=== PATIENT | male | born 1960 | race Caucasian/White ===

== ENCOUNTER 2018-06-26 07:23 | Inpatient (IN) ==
[2018-06-26] MEDS ORDERED: NS 1,000 ML IV ONE (07:56)
[2018-06-26 08:04] LABS: BASO# 0.04 X1000 (0.0-0.2); BASO% 0.4 % (0.0-0.8); EOS# 0.07 X1000 (0.0-0.7); EOS% 0.6 % (0.0-10.0); IMM GRAN# 0.03 X1000 (0.0-0.04); IMM GRAN% 0.3 % (0.0-0.5); LYMPH# 1.09 X1000 (1.2-3.4); LYMPH% 9.9 % (20.5-51.1); MCH 31.1 PG (27-31); MCHC 34.1 g/dL (33-37); MCV 91.1 FL (81-99); MONO# 0.65 X1000 (0.11-0.59); MONO% 5.9 % (1.7-9.3); NEUT# 9.13 X1000 (1.4-6.5); NEUT% 82.9 % (42.2-75.2); PLT 347 X1000 (130-400); RDW 13.7 % (11.5-14.5); WBC 11.01 X1000 (4.8-10.8)
[2018-06-26] MEDS ORDERED: ASPIRIN ONE (08:19)
[2018-06-26 08:21] LABS: AGAP 11; ALBUMIN 4.2 g/dL (3.5-5.0); ALKALINE PHOSPHATASE 67 U/L (32-122); BUN 15 mg/dL (8-22); CALCIUM 9.2 mg/dL (8.8-10.2); CHLORIDE 101 mmol/L (98-107); COSMO 272; CREATININE 0.7 mg/dL (0.7-1.2); ESTIMATED GFR > 60; GLUCOSE 120 mg/dL (70-104); GOT 12 U/L (10-34); GPT 8 U/L (10-44); POTASSIUM 4.2 mmol/L (3.5-5.1); SODIUM 135 mmol/L (136-145); TCO2 23 mmol/L (25-35); TOTAL PROTEIN 6.9 g/dL (6.3-8.3)
[2018-06-26 08:33] LABS: URINE SOURCE CLEAN CATCH
[2018-06-26 08:41] LABS: BILIRUBIN URINE NEGATIVE (NEGATIVE); BLOOD URINE NEGATIVE (NEGATIVE); CLARITY CLEAR (CLEAR); COLOR YELLOW; GLUCOSE URINE NEGATIVE (NEGATIVE); KETONE URINE NEGATIVE (NEGATIVE); LEUKOCYTES URINE NEGATIVE (NEGATIVE); NITRITE URINE NEGATIVE (NEGATIVE); PROTEIN URINE NEGATIVE (NEGATIVE); UROBILINOGEN URINE NORMAL
[2018-06-26] MEDS ORDERED: DUONEB (A & A) INH ONE (10:22)
--- NOTE | 2018-06-26 11:13 | PROVIDER DOCUMENTATION ---
This chart was entered by Alison Bolivar Scribe, acting as scribe for Maurice Funk MD. HPI-Syncope/Dizziness - General Chief Complaint: Near Syncope Stated Complaint: WEAK,FAINT Time Seen by Provider: 06/26/18 07:31 Source: patient Allergies/Adverse Reactions: Patient Allergies Allergy/AdvReac Type Severity Reaction Status Date / Time codeine Allergy Unknown Verified 05/20/18 07:01 Home Medications: Home Medication List Medication Instructions Recorded Confirmed Last Taken Type Albuterol 2.5MG/Ipratrop 0.5MG 3 ml INH Q6H PRN PRN #60 neb 05/04/18 Unknown Rx [Duoneb] Amoxicillin 875 mg PO BID #20 tab 05/04/18 Unknown Rx Prednisone 10 mg PO BID #10 tab 05/04/18 Unknown Rx Hydrocodone/APAP 5 mg/325 mg 1 - 2 tab PO Q6H PRN PRN #18 tab 05/20/18 Unknown Rx [[place]-5] Azithromycin [Zithromax Z-Hansel] 250 mg PO DIRECTED #1 pkg 06/26/18 Unknown Rx Methylprednisolone [Medrol Dosepak] 4 mg PO DIRECTED #1 pkg 06/26/18 Unknown Rx - History of Present Illness-Syncope/Dizzy Nature of Presenting Problem: 57yom with hx of COPD c/o two near syncopal episodes that occurred this morning with dizziness and diaphoresis. He reports that he had a near syncopal episode with diaphoresis and dizziness this morning and rested for a short period of time. He reports after he rested, he had an additional near syncopal episode with diaphoresis and dizziness. He reports that he has had similar episodes with similar symptoms in the past when he overdosed on norco. He denies injury. He does not currently c/o pain. He reports his symptoms resolved prior to arrival. He denies fever, chills, nausea, vomiting, cp. Onset/Duration: reports: this morning Timing: reports: gone now, intermittent Position/Activity at time of episode: reports: lying, standing Symptoms prior to episode: reports: diaphoresis Context: reports: felt faint, almost passed out. denies: lost consciousness, incontinent of urine, incontinent of stool Loss of Consciousness: no loss of consciousness Current Symptoms: reports: none/feels normal Recently Seen Here or By Another Healthcare Provider: No Review of Systems - Adult - REVIEW OF SYSTEMS - ADULT Constitutional: denies: chills, fever Eyes: denies: discharge, dry eyes Ears, Nose, Mouth & Throat: denies: ear discharge, ear pain Cardiovascular: denies: chest pain, palpitations Respiratory: denies: cough, shortness of breath Gastrointestinal: denies: abdominal pain, diarrhea, nausea, vomiting Genitourinary: denies: dysuria, hematuria Musculoskeletal: denies: back pain, muscle aches, muscle weakness Integumentary: reports: no symptoms reported Neurological: reports: dizziness/vertigo, syncope. denies: headache/migraines Psychiatric: reports: no symptoms reported Endocrine: reports: excessive sweating. denies: change in skin pigment Hematologic/Lymphatic: reports: no symptoms reported Allergic/Immunologic: reports: no symptoms reported All Other Systems: Reviewed and Negative Past History - Adult - PAST MEDICAL HISTORY-ADULT Review of Records: reports: Old Records Reviewed, Nursing Assessment Review, Medications Reviewed Major Childhood Illnesses: reports: denies history Cardiovascular: reports: denies history Respiratory: reports: asthma, COPD Gastrointestinal: reports: denies history Obstetrical/Gynecological: reports: denies history Genitourinary: reports: prostate cancer Musculoskeletal: reports: denies history, chronic pain Neurological: reports: denies history Endocrine/Immune: reports: denies history. denies: Diabetes, thyroid disorder Other Conditions: reports: denies history - PRIOR SURGERIES/PROCEDURES Surgical/Procedure History: reports: joint replacement (TKA) - IMMUNIZATION STATUS Childhood Immunizations: See Nurse Assessment Flu Vaccine: See Nurse Assessment - FAMILY HISTORY Family History: reviewed, not pertinent - SOCIAL HISTORY Smoking: cigarettes, less than 1 pack/day Substance Use: denies Living Situation: family Physical Exam-General - PHYSICAL EXAM-ADULT Initial Vital Signs Reviewed: Yes - CONSTITUTIONAL General Appearance: alert, no apparent distress - EYES Eyes: PERRL/EOMI, pink conjunctivae - HEAD, EARS, NOSE, MOUTH & THROAT HENMT: normocephalic/atraumatic, moist mucous membranes - NECK Neck: non-tender, supple - RESPIRATORY Respiratory: chest non-tender, lungs clear, normal breath sounds, no pleuratic chest pain, no respiratory distress, no accessory muscle use. 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 negative: bradycardia, tachycardia - GASTROINTESTINAL (ABDOMEN) Abdominal Exam: non tender, soft. negative: distended, guarding - MUSCULOSKELETAL Extremity: normal range of motion, non-tender, normal inspection, no pedal edema - SKIN Integumentary: normal color, warm/dry - NEUROLOGIC Neurologic: grossly normal, no motor/sensory deficits - PSYCHIATRIC Psych/Mental Status: normal mood/affect, normal thought content, normal thought process, oriented x 3 Progress - PLAN OF CARE/RESULTS Progress/Plan/Lab Results: Vital Signs - 8 hr 06/26/18 07:29 06/26/18 07:53 06/26/18 08:15 Temperature 97 F L Pulse Rate 80 75 Pulse Rate [Sitting] 81 Pulse Rate [Standing] 86 Pulse Rate [Supine] 79 Respiratory Rate 18 18 Blood Pressure 143/87 151/97 Blood Pressure [Sitting] 145/95 Blood Pressure [Standing] 155/92 Blood Pressure [Supine] 147/91 O2 Sat by Pulse Oximetry 95 97 06/26/18 09:30 06/26/18 10:32 06/26/18 11:22 Temperature Pulse Rate 79 79 81 Pulse Rate [Sitting] Pulse Rate [Standing] Pulse Rate [Supine] Respiratory Rate 19 11 L 14 Blood Pressure 150/73 132/79 Blood Pressure [Sitting] Blood Pressure [Standing] Blood Pressure [Supine] O2 Sat by Pulse Oximetry 92 L 94 L 93 L 06/26/18 11:23 Temperature 98.1 F Pulse Rate 81 Pulse Rate [Sitting] Pulse Rate [Standing] Pulse Rate [Supine] Respiratory Rate 14 Blood Pressure 132/79 Blood Pressure [Sitting] Blood Pressure [Standing] Blood Pressure [Supine] O2 Sat by Pulse Oximetry 92 L Laboratory Results - last 24 hr 06/26/18 06/26/18 06/26/18 07:53 07:53 07:53 WBC 11.01 H RBC 4.50 L Hgb 14.0 Hct 41.0 L MCV 91.1 MCH 31.1 H MCHC 34.1 RDW Std Deviation 13.7 Plt Count 347 MPV 10.0 Immature Gran % (Auto) 0.3 Neut % (Auto) 82.9 H Lymph % (Auto) 9.9 L Rabun % (Auto) 5.9 Eos % (Auto) 0.6 Baso % (Auto) 0.4 Immature Gran # (Auto) 0.03 Neut # (Auto) 9.13 H Lymph # (Auto) 1.09 L Rabun # (Auto) 0.65 H Eos # (Auto) 0.07 Baso # (Auto) 0.04 Sodium 135 L Potassium 4.2 Chloride 101 Carbon Dioxide 23 L Anion Gap 11 BUN 15 Creatinine 0.7 Estimated GFR/1.73 m2 > 60 BUN/Creatinine Ratio 21 Glucose 120 H Calculated Osmolality 272 Calcium 9.2 Total Bilirubin 0.60 AST 12 ALT 8 L Alkaline Phosphatase 67 Troponin T < 0.010 Total Protein 6.9 Albumin 4.2 Globulin 3.0 Albumin/Globulin Ratio 2.0 Urine Source Urine Color Urine Clarity Urine pH Ur Specific [place] Urine Protein Urine Ketones Urine Blood Urine Nitrite Urine Bilirubin Urine Urobilinogen Urine WBC Urine Glucose 06/26/18 06/26/18 08:23 10:40 WBC RBC Hgb Hct MCV MCH MCHC RDW Std Deviation Plt Count MPV Immature Gran % (Auto) Neut % (Auto) Lymph % (Auto) Rabun % (Auto) Eos % (Auto) Baso % (Auto) Immature Gran # (Auto) Neut # (Auto) Lymph # (Auto) Rabun # (Auto) Eos # (Auto) Baso # (Auto) Sodium Potassium Chloride Carbon Dioxide Anion Gap BUN Creatinine Estimated GFR/1.73 m2 BUN/Creatinine Ratio Glucose Calculated Osmolality Calcium Total Bilirubin AST ALT Alkaline Phosphatase Troponin T < 0.010 Total Protein Albumin Globulin Albumin/Globulin Ratio Urine Source CLEAN CATCH Urine Color YELLOW Urine Clarity CLEAR Urine pH 7.0 Ur Specific [place] 1.000 Urine Protein NEGATIVE Urine Ketones NEGATIVE Urine Blood NEGATIVE Urine Nitrite NEGATIVE Urine Bilirubin NEGATIVE Urine Urobilinogen NORMAL Urine WBC NEGATIVE Urine Glucose NEGATIVE Orders Category Date Time Status Admit - [facility] Routine AdmDCTranf 06/26/18 11:52 Active ED: Orthostatic Vital Signs (E as directed Care 06/26/18 07:32 Active cxr [CHEST-1 VIEW] [RAD] Stat Exams 06/26/18 11:09 Completed BLOOD CULTURE [BLDCUL] Stat Lab 06/26/18 11:51 Ordered CBC WITH ELECTRONIC DIFF [HEME] Stat Lab 06/26/18 07:53 Completed COMPREHENSIVE METABOLIC PANEL [CHEM] Stat Lab 06/26/18 07:53 Completed TROPONIN T Stat Lab 06/26/18 07:53 Completed TROPONIN T Stat Lab 06/26/18 10:[address] [URINALYSIS] Stat Lab 06/26/18 08:23 Completed 0.9% Sodium Chloride Inj [Ns] 1,000 ml Med 06/26/18 07:56 Discontinued IV 999 mls/hr Albuterol 2.5MG/Ipratrop 0.5MG [Duoneb (A & A)] Med 06/26/18 10:22 Discontinued 3 ml INH NOW ONE Aspirin Med 06/26/18 08:19 Discontinued 325 mg .ROUTE .STK-MED ONE CefTRIAXONE [Rocephin] 1 gm Med 06/26/18 11:51 Active 0.9% Sodium Chloride Inj [Ns] 50 ml IV NOW Aerosol Treatments Routine Oth 06/26/18 10:22 Active Aerosol Treatments Stat Oth 06/26/18 10:22 Active EKG [EKG] Stat Ther 06/26/18 07:33 Draft Transfer/Admit Order [TRANSFER] Routine Transfer 06/26/18 11:53 Ordered At recheck, pt noted that he was feeling better after meds/fluids in the ER. Sats continued to stay 88-92 in ER on 3L NC. Result Diagrams: 06/26/18 07:53 06/26/18 07:53 - EKG 1 Time of EKG reading by physician:: 10:16 EKG Read and Signed by:: Maurice Funk EKG Interpretation (*Must complete 3 of following elements*): Normal Rate: 72 Rhythm: Normal sinus rhythm [place]: normal ST Wave: normal - XRAY 1 XRAY Study: Chest Impression: Abnormal (FINDINGS: Poor inspiratory effort. There are basilar infiltrates and atelectasis. No cardiomegaly. Questionable small left pleural effusion. IMPRESSION: Bilateral lower lung infiltrates and atelectasis) - CONSULTS/PCP/HOSPITALIST Notification #1 *Consult/PCP/Hospitalist*: Dr Guzman Time Discussed: 11:52 Consult Disposition: Admit Departure - Departure Date of Disposition Decision: 06/26/18 Time of Disposition Decision: 11:49 DIAGNOSIS: COPD exacerbation, Pneumonia, Hypoxia Disposition: ADMITTED INPATIENT 09 Certified Medical Emergency: Emergent Condition: Good Additional Freetext Instructions: Follow up with your DR tomorrow, to ER sooner if worse. Continue your nebs as directed. Stop smoking. ED Follow Up Instructions: You have been treated by a care provider in the Emergency Department. These instructions are being provided to you so you can have an understanding of how to care for yourself upon discharge. Upon discharge from the Emergency Department, you are responsible for making arrangements for follow-up care by a physician of your choice. Take all prescribed medications as directed. Return to the Emergency Department immediately for any new or worsening symptoms. You may call the Physician Referral phone number at [phone] to obtain a list of Physicians who are taking new patients. Prescriptions: Methylprednisolone [Medrol Dosepak] 4 mg PO DIRECTED #1 pkg Azithromycin [Zithromax Z-Hansel] 250 mg PO DIRECTED #1 pkg Referrals and Follow-Ups: Adin Grover MD [Primary Care Provider] - Work Excuses: Return to School/Parent Work Discharge Education: Chronic Obstructive Pulmonary Disease Exacerbation, [id number], Chronic Obstructive Pulmonary Disease, [id number] - Critical Care Note This patient required my direct & personal management of CC.: No Attestation - Physician/ VAMSHI Attestation Patient care was provided by Advanced Practice Provider:: No The physician spent face to face time with patient:: Yes Advanced Practice Provider documentation review:: Supervising physician onsite and consulted in the evaluation and care of this patient. The physician did have a face to face encounter with the patient. This chart was documented by the indicated scribe, (Alison Bolivar, Monica) and accurately reflects the services I performed and decisions made by me, Maurice Ortiz MD, as attested by the provider's signature.
--- NOTE | 2018-06-26 11:41 | Diag Imaging Result Doc PS360 ---
EXAM: CHEST-1 VIEW HISTORY: copd TECHNIQUE: Chest single view COMPARISON: 05/04/2018 FINDINGS: Poor inspiratory effort. There are basilar infiltrates and atelectasis. No cardiomegaly. Questionable small left pleural effusion. IMPRESSION: Bilateral lower lung infiltrates and atelectasis Electronically signed by Gurwinder Romero 06/26/2018 11:39 AM
--- NOTE | 2018-06-26 11:43 | EKG Report ---
Test Performed on : 06/26/2018 10:16:22 AM Test Reason : weakness Blood Pressure : / mmHG Vent. Rate : 072 BPM Atrial Rate : 072 BPM P-R Int : 140 ms QRS Dur : 088 ms QT Int : 396 ms P-R-T Axes : 066 044 040 degrees QTc Int : 433 ms Normal sinus rhythm. Normal ECG When compared with ECG of 20-MAY-2018 10:02, No significant change was found Unconfirmed Result
[2018-06-26] MEDS ORDERED: ROCEPHIN 1 GM in NS 50 ML IV ONE (11:51)
[2018-06-26] MEDS ORDERED: NS 50 ML ONE (12:15)
[2018-06-26] MEDS ORDERED: DUONEB (A & A) INH PRN (12:41)
[2018-06-26] MEDS ORDERED: TYLENOL PO PRN (12:41)
[2018-06-26] MEDS ORDERED: NORCO-5 PO PRN (12:53)
[2018-06-26 13:49] LABS: BE -0.4 mmoll (-3.0-3.0); BLOOD TYPE ARTERIAL; HCO3-(ACT) 24.4 mmoll (20.0-26.0); METHB 1.1 % (0.0-1.5); O2(CT) 18.7 mL/dL (15.0-23.0); O2HB 91.6 % (95.0-99.0); PCO2(98.6) 34 mmHg (35-45); PO2(98.6) 70 mmHg (60-100); SAMPLE BLOOD; SAO2 96.6 % (95.0-100.0); THB 14.5 g/dL (11.5-17.4); pH(98.6) 7.44 (7.35-7.45)
[2018-06-26 13:53] LABS: ALLEN TEST YES; MODALITY ROOM AIR
[2018-06-26] MEDS ORDERED: NICODERM PATCH TD PRN (13:57)
[2018-06-26] MEDS: NS 1,000 ML IV SCH ×2 (14:04→23:11)
[2018-06-26] MEDS: SOLU-MEDROL IV SCH ×2 (14:04→22:27)
--- NOTE | 2018-06-26 14:28 | HISTORY AND PHYSICAL ---
CHIEF COMPLAINT: Feverish, cold, clammy, sweating, dizziness. HISTORY OF PRESENT ILLNESS: The patient is a 57-year-old male who is a current smoker with a past medical history of COPD, prostate cancer status post prostatectomy, osteoarthritis, GERD, COPD, chronic pain who woke up this morning sweating profusely. Per his , he was lal, cold and clammy. The patient felt feverish. He complained of dizziness and wheezing, had 2 near syncopal episodes. His brought him into the ED where imaging showed he had bilateral lower lung infiltrates and atelectasis and slightly elevated white count at 11. He will be admitted for a COPD exacerbation, pneumonia and hypoxia. We will continue on IV antibiotics, bronchodilators and low-dose IV steroids, and we will go ahead and check an ABG and carotids and echo for near syncope. PAST MEDICAL HISTORY: 1. COPD. 2. Osteoarthritis. 3. GERD. 4. Prostate cancer. 5. Chronic pain. PAST SURGICAL HISTORY: 1. Prostatectomy. 2. Bilateral knee arthroplasty. 3. Left wrist cyst excision. 4. Left total knee replacement. SOCIAL HISTORY: He is . He smokes one pack per day has done so for 40+ years, denies any alcohol or illicit drug use. FAMILY HISTORY: Brother with rectal cancer and sister with colon cancer. No known diabetes or coronary artery disease. HOME MEDICATIONS: None per report. ALLERGIES: Codeine. REVIEW OF SYSTEMS: A 14-point review of systems was completed and negative except for those mentioned in the HPI. PHYSICAL EXAMINATION: VITAL SIGNS: Temperature is 97, heart rate 81, respirations 14, blood pressure 132/79, O2 is 92% on room air. GENERAL: The patient is a 57-year-old male who is sitting up in the bed in no acute distress having his ABGs drawn. HEENT: Atraumatic, normocephalic. PERRL. NECK: Supple. Trachea midline. CARDIOVASCULAR: S1, S2 appreciated. No murmurs, gallops, or rubs noted. RESPIRATORY: Lung sounds expiratory wheezes bilaterally decreased in the bases. GASTROINTESTINAL: Soft, nontender, nondistended, positive bowel sounds in 4 quadrants. EXTREMITIES: No signs of clubbing or cyanosis. NEUROLOGIC: No focal deficits noted. SKIN: Warm, dry, and intact. DIAGNOSTIC DATA: Chest x-ray bilateral lower lung infiltrates and atelectasis. EKG normal sinus rhythm, 72 beats per minute. LABORATORY DATA: White count 11, hemoglobin and hematocrit 14 and 41, platelet count is 347. ABGs pending. Sodium 135, potassium 4.2, BUN 15, creatinine 0.7, blood glucose 120. Two sets of troponin have been negative at less than 0.010. Urinalysis is negative. ASSESSMENT AND PLAN: 1. Bilateral lower lobe pneumonia. We will continue with the Rocephin and Levaquin, bronchodilators and aggressive pulmonary toilet. Recheck a chest x-ray in the morning. 2. Chronic obstructive pulmonary disease exacerbation. We will continue with intravenous antibiotics, bronchodilators and aggressive pulmonary toilet, and intravenous steroids. 3. Near syncope check echo/carotids ultrasound and treat/consult accordingly, check orthostatics 4. Tobacco use and abuse. We educated the patient on smoking cessation as well as the need to quit. Will need continued education. 5. Osteoarthritis. Aware. 6. Gastroesophageal reflux disease. Continue proton-pump inhibitor. 7. Prostate cancer history status post prostatectomy. Aware. 8. Further recommendations to follow physician evaluation, laboratory and diagnostic data. Dictated by FREDI Segal for Wilfred Guzman MD cc: Wilfred Guzman MD [facility]
[2018-06-26] MEDS: DUONEB (A & A) INH SCH ×3 (15:45→23:04)
--- NOTE | 2018-06-26 16:02 | Extremity Venous Study ---
EXAM: Carotid Ultrasound HISTORY: near syncope TECHNIQUE: Grayscale, duplex, and color Doppler evaluation was performed of the carotid arteries bilaterally. COMPARISON: None. FINDINGS: There is bilateral calcific atherosclerotic plaque at the bifurcations. The proximal right internal carotid artery systolic velocity is elevated to 235 cm/s.. Diastolic velocity is elevated to 85 cm/s. Right ICA/CCA ratio is elevated to 3.2. This is consistent with a stenosis greater than or equal to 70%. The left proximal, mid, and distal internal carotid artery systolic and diastolic velocities are elevated to 392/140 cm/s, 351/101 cm/s and 245/66 cm/s. Flow is markedly turbulent. Left ICA/CCA ratio is 5.95. This is consistent with stenosis greater than 70% to near occlusion. Bilateral vertebral flow is antegrade. (Preliminary report was given by the radiology ct technologist to assess S. Garza MANAGER TALENT ACQUISITION at the time the study. IMPRESSION: Greater than 70% stenoses bilateral internal carotid arteries approaching near occlusion on the left. Electronically signed by Carolyn Gonzalez 06/26/2018 4:00 PM
--- NOTE | 2018-06-26 20:03 | GENERAL SURGERY CONSULTATION ---
DATE: 06/26/2018 CHIEF COMPLAINT: Drop attack. HISTORY: This is a 57-year-old who had 2 episodes of severe dizziness and almost drop attacks this morning when getting up. He was admitted, underwent a carotid imaging study, which showed significant carotid stenosis bilaterally, the worse on the left side. Very high velocities were noted. He denies any lateralizing symptoms. PAST MEDICAL HISTORY: Pertinent for prostate cancer, chronic pain, gastroesophageal reflux, osteoarthritis and COPD. PREVIOUS SURGERIES: Include a prostatectomy, bilateral knee surgery, left wrist cyst excision and left total knee replacement. MEDICATIONS: He denies any medications at home. ALLERGIES: He has an allergy to Codeine. SOCIAL HISTORY: He is . He smokes a pack per day. He has done so for 40 years. FAMILY HISTORY: Pertinent for cancer of the colon. REVIEW OF SYSTEMS: Otherwise negative. PHYSICAL EXAMINATION: Vital Signs: He is afebrile. Heart rate 91, blood pressure 149/83. Neck: He has carotid bruits. Lungs: Bilateral breath sounds. Heart: Regular rate and rhythm. Abdomen: Soft. Extremities: No peripheral edema. He moves all extremities. He has +5/+5 strength in all extremities. Neurologic: He is awake, alert and oriented. ASSESSMENT: Bilateral carotid stenosis appears to be a significant stenosis on the left. We will plan to get a CTA to further evaluate his carotids before recommended surgery. cc: Julian Givens MD
--- NOTE | 2018-06-26 21:30 | HISTORY AND PHYSICAL ---
ADDENDUM: Patient seen and examined by myself, full note dictated and discussed with nurse practitioner. Patient presented to the hospital with a near-syncopal episode. Will admit him the hospital, check carotid Doppler, rule out WI and will follow. cc: Wilfred Guzman MD
[2018-06-27] MEDS: DUONEB (A & A) INH SCH ×4 (03:19→15:17)
[2018-06-27] MEDS: NS 1,000 ML IV SCH ×2 (04:00→16:07)
[2018-06-27 05:41] LABS: BLOOD TYPE ARTERIAL; SAMPLE BLOOD
[2018-06-27 05:42] LABS: ALLEN TEST YES; BE -1.6 mmoll (-3.0-3.0); HCO3-(ACT) 23.6 mmoll (20.0-26.0); MODALITY ROOM AIR; O2(CT) 18.9 mL/dL (15.0-23.0); O2HB 93.2 % (95.0-99.0); PCO2(98.6) 32 mmHg (35-45); PO2(98.6) 68 mmHg (60-100); SAO2 96.6 % (95.0-100.0); THB 14.4 g/dL (11.5-17.4); pH(98.6) 7.44 (7.35-7.45)
[2018-06-27] MEDS: SOLU-MEDROL IV SCH ×3 (06:21→22:11)
[2018-06-27] MEDS: PROTONIX PO SCH (06:21)
[2018-06-27 06:55] LABS: BASO# 0.01 X1000 (0.0-0.2); BASO% 0.1 % (0.0-0.8); HEMATOCRIT 41.8 % (42.0-52.0); HEMOGLOBIN 14.1 g/dL (14.0-18.0); IMM GRAN# 0.05 X1000 (0.0-0.04); IMM GRAN% 0.3 % (0.0-0.5); LYMPH# 0.72 X1000 (1.2-3.4); LYMPH% 4.4 % (20.5-51.1); MCH 30.8 PG (27-31); MCHC 33.7 g/dL (33-37); MCV 91.3 FL (81-99); MONO# 0.53 X1000 (0.11-0.59); MONO% 3.3 % (1.7-9.3); MPV 10.4 FL (7.4-10.4); NEUT# 14.92 X1000 (1.4-6.5); NEUT% 91.9 % (42.2-75.2); PLT 387 X1000 (130-400); RBC 4.58 XMIL (4.7-6.1); RDW 13.8 % (11.5-14.5); WBC 16.23 X1000 (4.8-10.8)
[2018-06-27 07:08] LABS: AGAP 15; ALBUMIN 3.9 g/dL (3.5-5.0); ALKALINE PHOSPHATASE 64 U/L (32-122); BUN 12 mg/dL (8-22); CALCIUM 8.9 mg/dL (8.8-10.2); CHLORIDE 105 mmol/L (98-107); COSMO 284; CREATININE 0.8 mg/dL (0.7-1.2); ESTIMATED GFR > 60; GLUCOSE 184 mg/dL (70-104); GOT 12 U/L (10-34); GPT 8 U/L (10-44); POTASSIUM 3.9 mmol/L (3.5-5.1); SODIUM 140 mmol/L (136-145); TCO2 20 mmol/L (25-35); TOTAL PROTEIN 6.9 g/dL (6.3-8.3)
--- NOTE | 2018-06-27 07:40 | Diag Imaging Result Doc PS360 ---
EXAM: CHEST-PORTABLE HISTORY: Pneumonia TECHNIQUE: Chest single view 06/26/2018 COMPARISON: None. FINDINGS: Improved inspiratory effort. The infiltrates are less pronounced on the current study. No cardiomegaly. No pleural effusions identified. IMPRESSION: Mild interval improvement. Electronically signed by Gurwinder Romero 06/27/2018 7:38 AM
[2018-06-27 08:15] LABS: LYMPHS 4 % (21-51); MONO 2 % (1-9); SEGS 94 % (42-75)
--- NOTE | 2018-06-27 08:19 | ECHO REPORT ---
ORDER DATE: 06/26/2018 ECHOCARDIOGRAPHIC MEASUREMENTS: Interventricular septum 0.9, left ventricular posterior wall 0.8, diastolic diameter 4.4, left atrium 3.5, aorta 3.4. SUMMARY OF TWO-DIMENSIONAL IMAGIN. Aortic valve leaflets are trileaflet. 2. Pulmonic valve not well visualized. Mitral valve was normal. Tricuspid valve was normal. There is trace to mild mitral regurgitation. Mild tricuspid regurgitation. Peak velocity across the tricuspid valve was 2.3 m/sec. Pulmonary artery systolic pressure of 32 mmHg. 3. Peak velocity across the aortic valve less than 2 m/sec. There is no aortic stenosis. There is mild aortic regurgitation. Normal left ventricular cavity size. Estimated ejection fraction of 60% to 65%. 4. There is no pericardial effusion or obvious intracardiac mass or thrombus. cc: MD Wilfred Trujillo MD
--- NOTE | 2018-06-27 11:00 | Diag Imaging Result Doc PS360 ---
EXAM: CT ANGIOGRAM NECK - 06/27/2018 HISTORY: carotids TECHNIQUE: CT angiogram neck with intravenous contrast. Axial, 2-D coronal MIP, and 3-D MIP images are obtained. COMPARISON: 06/26/2018 ultrasound carotid flow studies FINDINGS: Arterial contrast opacification is suboptimal, with greater opacification of the venous structures structures there is a the arterial structures. This limits evaluation of the arterial structures, particularly with regards to noncalcified atherosclerotic plaques. There is a heavily calcified plaque at the proximal right internal carotid artery. This appears to produce stenosis of about 75% or possibly greater. There is partially calcified atherosclerotic plaquing along the proximal and mid left internal carotid artery. There is heavily calcified at the mid left internal carotid artery caliber and appears to produce about 75% stenosis or greater. There is multilevel cervical spine degenerative disease noted IMPRESSION: Suboptimal study due to suboptimal contrast opacification of arterial structures. Heavily calcified plaque at the proximal right internal carotid artery. This appears to produce stenosis of about 75% or possibly greater. Atherosclerotic plaquing along proximal and mid left internal carotid artery. Heavily calcified plaque at the mid left internal carotid artery producing stenosis of about 75% or greater. Electronically signed by Mario Hernandes 06/27/2018 10:58 AM
[2018-06-27] MEDS ORDERED: ROCEPHIN 1 GM in NS 50 ML IV SCH (12:00)
[2018-06-27] MEDS ORDERED: LOPRESSOR PO ONE (15:41)
[2018-06-27] MEDS ORDERED: XOPENEX NEB INH PRN (15:41)
--- NOTE | 2018-06-27 16:05 | EKG Report ---
Test Performed on : 06/27/2018 1:53:54 PM Test Reason : ST Blood Pressure : / mmHG Vent. Rate : 129 BPM Atrial Rate : 129 BPM P-R Int : 134 ms QRS Dur : 082 ms QT Int : 306 ms P-R-T Axes : 074 070 036 degrees QTc Int : 448 ms Sinus tachycardia. Otherwise normal ECG When compared with ECG of 26-JUN-2018 10:16, (Unconfirmed) Vent. rate has increased BY 57 BPM Confirmed by Frank Moon MD ([id number]) on 06/29/2018 10:27:31 AM
[2018-06-27] MEDS: XOPENEX NEB INH SCH ×2 (19:45→22:49)
[2018-06-27] MEDS ORDERED: LOPRESSOR PO SCH (21:00)
--- NOTE | 2018-06-27 22:06 | PROGRESS NOTE ---
DATE: 06/27/2018 SUBJECTIVE: Patient notes his cough is better. Shortness of breath is better. States he is ready to go home. Certainly expect him to say anything and everything is better if that would advance him to an early discharge. PHYSICAL: Vital Signs: Temperature 98, pulse 65, respiratory rate 18, BP 146/84. General: Patient is awake, alert. He is in mild respiratory distress which is improved from admission. HEENT: Normocephalic. Neck: Supple. Cardiovascular: Regular rate. Chest: Clear currently. No current wheezing although he is currently taking a breathing treatment. Abdomen: Soft, nondistended. Extremities: Moves all extremities. ASSESSMENT: 1. Chronic obstructive pulmonary disease with exacerbation. 2. Bilateral lower lobe pneumonia. 3. Carotid bruit with stenosis. 4. Chronic tobacco abuse. 5. Osteoarthritis. PLAN[facility]. Hopefully, he will continue to improve. Expect that he will need to be discharged home to allow time for his pneumonia to improve before having a carotid artery surgery. Will defer this to Dr. Givens. cc: Wilfred Guzman MD
[2018-06-28] MEDS: NS 1,000 ML IV SCH (01:31)
[2018-06-28] MEDS: XOPENEX NEB INH SCH ×3 (03:10→11:00)
[2018-06-28] MEDS: PROTONIX PO SCH ×2 (05:37→06:03)
[2018-06-28] MEDS: SOLU-MEDROL IV SCH (05:38)
[2018-06-28] MEDS ORDERED: LOPRESSOR PO SCH (09:00)
[2018-06-28] MEDS ORDERED: SOLU-MEDROL IV SCH ×2 (10:30→18:00)
[2018-06-28] MEDS ORDERED: OMNICEF PO SCH (10:30)
[2018-06-28] MEDS ORDERED: ASPIRIN PO SCH (10:45)
[2018-06-28] MEDS ORDERED: PLAVIX PO ONE (10:45)
[2018-06-28 11:18] VITALS: BP 132/67
--- NOTE | 2018-06-28 22:20 | DISCHARGE SUMMARY ---
ADMISSION DATE: 06/26/2018 DISCHARGE DATE: 06/28/2018 ADMITTING DIAGNOSES: 1. Bilateral lower lobe pneumonia. 2. Chronic obstructive pulmonary disease with exacerbation. 3. Near syncopal episode. 4. Osteoarthritis. 5. Gastroesophageal reflux disease. 6. Prostate cancer with history of prostatectomy. DISCHARGE DIAGNOSES: 1. Bilateral lower lobe pneumonia. 2. Chronic obstructive pulmonary disease with exacerbation. 3. Carotid bruit with stenosis. 4. Chronic tobacco abuse. 5. Osteoarthritis. PROCEDURES AND FINDINGS: Chest x-ray done on 06/26/2018 showed bilateral lower lung infiltrates and atelectasis. Chest x-ray on 06/27/2018 showed mild interval improvement of pneumonia. Carotid Doppler study done on 06/26/2018 showed greater than 70% stenosis to the bilateral internal carotid arteries approaching near occlusion on the left. CTA done on 06/27/2018 showed heavy calcified plaque at the proximal right internal carotid artery that appears to produce stenosis of 75% or possibly greater. Arthrosclerotic plaquing along the proximal and mid left internal carotid artery. Heavily calcified plaque at the mid left internal carotid artery producing stenosis of about 75% or greater. CONSULTANTS: Dr. Julian Givens. HOSPITAL COURSE: This is a 57-year-old male who is a current smoker. He has a past medical history of COPD, prostate cancer, status post prostatectomy, osteoarthritis, GERD, COPD, and chronic pain who on 06/26 woke up and was sweating profusely. He was lal, cold, and clammy and felt feverish. He complained of dizziness and wheezing and had 2 near syncopal episode. His then brought him to the ER where he was shown to have bilateral lower lung infiltrates and atelectasis and slightly elevated white count. He was admitted for COPD exacerbation, pneumonia and hypoxia. They subsequently did carotid arterial studies with a carotid Doppler which showed greater than 70% stenosis to the bilateral internal carotid arteries with near total occlusion on the left. CTA was then performed on 06/27/2018, which showed heavy calcification and stenosis of 75% or greater on the right. Heavy calcification and plaque producing stenosis of 75% or greater on the left. Dr. Givens, surgeon, was consulted. His recommendations were to do the CTA and evaluate the patient for surgery. The patient is planning to go home with Omnicef for his bilateral lower lobe pneumonia. We will continue a Medrol Dosepak on him. The patient started on aspirin and Plavix in the hospital. We will continue those at home and discharged the patient home with follow-up to see Dr. Givens in 2 weeks. DISCHARGE LABORATORY DATA: His white blood cell count 16.23, hemoglobin 14.1, hematocrit 41.8, platelet count 387,000. Sodium 140, potassium 3.9, BUN 12, creatinine 0.8, glucose 184, calcium 8.9. Arterial blood gases show pH of 7.44, pCO2 of 32, PO2 68, bicarb 23.6, O2 saturation 96.6 on room air. Vital signs temperature 97.9 degrees, pulse rate 115, respiratory rate 20, blood pressure 132/67 with a MAP of 84, O2 saturation 93% on room air. DISCHARGE MEDICATIONS: Protonix 20 mg p.o. daily. Aspirin 81 mg p.o. daily. Lopressor 25 mg p.o. b.i.d. Medrol Dosepak 4 mg p.o. as directed. Omnicef 300 mg p.o. b.i.d. Plavix 75 mg p.o. daily. DISCHARGE DIET: Heart healthy diet. DISCHARGE ACTIVITY: To resume normal activity. No restrictions. DISCHARGE DISPOSITION: Discharge home with self care. Follow up with Dr. Givens in 2 weeks. We reviewed over smoking cessation with patient and to continue discharge medications as prescribed. Dictated by FREDI Tavares for Wilfred Guzman MD cc: MD Julian Orantes MD
--- NOTE | 2018-06-29 07:33 | DISCHARGE SUMMARY ---
ADMISSION DATE: 06/26/2018 DISCHARGE DATE: 06/28/2018 DISCHARGE ADDENDUM: The patient seen and examined by myself. Full note dictated and discussed with nurse practitioner. On discharge, patient is awake, alert. He is able to ambulate in the [place] without any difficulty. Does have bilateral pneumonia and he will continue antibiotics for the next few days. He also has bilateral carotid disease. He will continue to follow up with Dr. Givens regarding his carotid disease. He will need to wait until his pneumonia is improved. Also discussed with patient the importance of stopping smoking. Please see full note. cc: Wilfred Guzman MD
[2018-06-29] MEDS ORDERED: PLAVIX PO SCH (09:00)
== END 2018-06-28 13:02 | disposition home or self-care (01) | DRG 190 ==
LOC: P.ED 07:23 → P.MEDSURG 07:24
PROVIDERS: ATTEND Family Medicine
CPT/HCPCS: 70498; 71010; 71045; 80053; 82805; 82948; 84484; 85025; 87040; 93005; 93010; 93306; 93880; 94640; 94761; 96361; 96374; 99285; A9270; C8929; J0696; J2920; J7030; Q9957; Q9967; XXXXX

== ENCOUNTER 2018-07-14 06:42 | Inpatient (IN) ==
[2018-07-11 14:31] LABS: HEMATOCRIT 40.4 % (42.0-52.0); HEMOGLOBIN 13.6 g/dL (14.0-18.0); MCH 31.6 PG (27-31); MCHC 33.7 g/dL (33-37); MCV 93.7 FL (81-99); MPV 10.2 FL (7.4-10.4); RBC 4.31 XMIL (4.7-6.1); RDW 14.4 % (11.5-14.5); WBC 11.84 X1000 (4.8-10.8)
[2018-07-11 14:57] LABS: AGAP 12; BUN 15 mg/dL (8-22); CALCIUM 8.7 mg/dL (8.8-10.2); CHLORIDE 107 mmol/L (98-107); COSMO 284; CREATININE 0.9 mg/dL (0.7-1.2); ESTIMATED GFR > 60; GLUCOSE 106 mg/dL (70-104); POTASSIUM 3.6 mmol/L (3.5-5.1); SODIUM 142 mmol/L (136-145); TCO2 23 mmol/L (25-35)
[2018-07-14] MEDS ORDERED: PEPCID ONE (07:03)
[2018-07-14] MEDS ORDERED: REGLAN ONE (07:03)
[2018-07-14] MEDS ORDERED: KEFZOL 1 GM/D5W 1 GM/50 ML IVPB ONE (07:04)
[2018-07-14] MEDS ORDERED: LR 1,000 ML ONE ×2 (07:04→12:57)
[2018-07-14] MEDS ORDERED: LOPRESSOR ONE (07:12)
[2018-07-14] MEDS ORDERED: LOPRESSOR PO ONE (07:15)
[2018-07-14] MEDS ORDERED: QUELICIN (DOSE) ONE (07:39)
[2018-07-14] MEDS ORDERED: NORCURON ONE (07:39)
[2018-07-14] MEDS ORDERED: XYLOCAINE-MPF 2% ONE (07:39)
[2018-07-14] MEDS ORDERED: SODIUM CHLORIDE 0.9% 10 ML ONE (07:39)
[2018-07-14] MEDS ORDERED: DIPRIVAN 1% ONE (07:42)
[2018-07-14] MEDS ORDERED: FENTANYL ONE (07:43)
[2018-07-14] MEDS ORDERED: VERSED ONE (08:43)
[2018-07-14] MEDS ORDERED: AMIDATE ONE (08:57)
[2018-07-14] MEDS ORDERED: NS 1,000 ML ONE (10:06)
[2018-07-14] MEDS ORDERED: KEFZOL ONE (10:08)
[2018-07-14] MEDS ORDERED: NS 500 ML ONE (10:09)
[2018-07-14] MEDS ORDERED: HEPARIN ONE (10:09)
[2018-07-14] MEDS ORDERED: MARCAINE 0.25% PF/EPI 1:200,000 ONE (10:09)
[2018-07-14] MEDS ORDERED: XYLOCAINE 1% ONE (10:09)
[2018-07-14] MEDS ORDERED: HEPARIN (DOSE) ONE (11:01)
[2018-07-14] MEDS ORDERED: ROBINUL ONE ×3 (11:03→12:01)
[2018-07-14] MEDS ORDERED: NEOSTIGMINE ONE (12:01)
[2018-07-14] MEDS ORDERED: ULTRAM PO PRN (13:23)
[2018-07-14] MEDS ORDERED: ZOFRAN IV PRN (13:23)
[2018-07-14] MEDS: LR 1,000 ML IV SCH ×2 (13:54→23:46)
[2018-07-14] MEDS: OFIRMEV 1000 MG/ISOTONIC SOLN 1,000 MG/100 ML BOTTLE IV SCH ×2 (14:07→19:42)
--- NOTE | 2018-07-14 18:56 | OPERATIVE NOTE ---
PROCEDURE DATE: 07/14/2018 PROCEDURE PERFORMED: Left carotid endarterectomy with patch angioplasty. SURGEON: Julian Givens MD. HELIUM ARC WELDER: Elder Potter RN. PREOPERATIVE DIAGNOSIS: High-grade left internal carotid stenosis. POSTOPERATIVE DIAGNOSIS: High-grade left internal carotid stenosis. DESCRIPTION OF PROCEDURE: Satisfactory general endotracheal anesthesia achieved. The left side of the neck was prepped and draped in a sterile fashion. We made an oblique jin on the skin and anesthetized the skin with 0.25 Marcaine with epinephrine. We incised the skin, and carried it through the platysma. We then dissected along the anterior border of the sternocleidomastoid muscle. Crossing veins were ligated and divided. We dissected out the common carotid and surrounded with an umbilical tape. We then gave the patient 5000 units of heparin systemically. We dissected out the external carotid surrounded with a large vessel loop. We dissected high into the neck to get pass the plaque in the internal. We placed a small vessel loop in the internal carotid. After the heparin had circulated for more than 5 minutes, we then occluded flow in the internal with a profunda clamp. We used a vessel loop on the external and clamped off the common. Under 2.5 loupe magnification, we then incised the common extended with the Mae scissors through the plaque in the bulb, and proximal internal and this most significant stenosis was in the mid internal. We then placed a 4 to 3 mm Sundt shunt, and the clamp time was less than 2 minutes. We then used a Muse to raise the plaque out of the bulb, and transected it proximally with the Mae scissors. We used a Muse to dissect the plaque out of the external doing an eversion endarterectomy of the external, then continued in the internal until we got past the high-grade stenosis in the mid internal. We then irrigated the endarterectomized vessel out with heparinized saline, and removed all leaflets that we could identify. We had to tack the intima once with a 7- 0 Prolene distally. We then obtained a 1 x 6 bovine patch after it had soaked appropriately. We then did the patch angioplasty with a 6-0 Prolene running as we neared completion of the patch angioplasty. We back bled the external, removed the shunt from the internal, and clamped it off once again with a profunda clamp. We then removed the shunt from the common and flushed it. We then finished the patch angioplasty. We held the internal occluded, opened the external, then the common, and after 5 seconds opened the internal as well. A couple of extra patch stitches were used to achieve complete hemostasis of the patch angioplasty. We irrigated out the wound with Kefzol-impregnated saline. We placed a Ncik drain within the wound and secured at the skin with 2-0 silk. We then proceeded to close the platysma with a running 3-0 Polysorb. We then once again injected 0.25 Marcaine with epinephrine in the subcutaneous tissue. We closed the skin with a 4-0 Polysorb subcuticular stitch, Telfa and sterile OpSite. Island dressing was applied. He tolerated the procedure, and was awake at the time of this dictation. cc: Julian Givens MD
[2018-07-14] MEDS: LOPRESSOR PO SCH (21:24)
[2018-07-15] MEDS: OFIRMEV 1000 MG/ISOTONIC SOLN 1,000 MG/100 ML BOTTLE IV SCH ×2 (02:33→06:43)
[2018-07-15] MEDS: LR 1,000 ML IV SCH (03:32)
[2018-07-15] MEDS ORDERED: NORCO-7.5 PO PRN (07:41)
[2018-07-15] MEDS ORDERED: LR 1,000 ML IV SCH (07:45)
[2018-07-15] MEDS: LOPRESSOR PO SCH ×2 (08:39→20:29)
[2018-07-15] MEDS: ASPIRIN PO SCH (08:39)
[2018-07-15] MEDS ORDERED: ASPIRIN PO SCH (09:00)
--- NOTE | 2018-07-15 14:30 | GENERAL SURGERY PROGRESS NOTE ---
DATE: 07/15/2018 SUBJECTIVE: He is postoperative day 1 after a left carotid endarterectomy. OBJECTIVE: Today he is neurologically intact. Trachea is in the midline. Minimal swelling is present. His heart rate is 82, blood pressure is 150/78. Neurologically, he is intact. PLAN: The plan is to remove his drain today and will advance his diet, transfer him up to a regular room. cc: Julian Givens MD
[2018-07-16 06:09] VITALS: BP 151/103
[2018-07-16] MEDS: LOPRESSOR PO SCH (07:58)
[2018-07-16] MEDS: ASPIRIN PO SCH (07:58)
--- NOTE | 2018-07-16 08:32 | GENERAL SURGERY PROGRESS NOTE ---
DATE: 07/16/2018 At 7:40 in the morning, Mr. Sorto is doing well. His trachea is midline. Neurologically, he is fine. His wound was fine. We will discharge him home today. He is to stay on aspirin and Plavix. He is to take his metoprolol also for blood pressure. He will return to see me in the office in 8 days. He is to stay off work until I see him. He understands. cc: Julian Givens MD
== END 2018-07-16 09:52 | disposition home or self-care (01) | DRG 39 ==
LOC: SURHOLD 06:42 → ICU 13:22
PROVIDERS: ADMIT Surgery; ATTEND Surgery
CPT/HCPCS: 80048; 85027; 88304; 93005; A9270; C1763; J0131; J0330; J0690; J1644; J2250; J3010; J7030; J7040; J7120

== ENCOUNTER 2019-01-24 00:47 | Inpatient (IN) ==
--- NOTE | 2019-01-17 08:41 | EKG Report ---
Test Performed on : 01/17/2019 08:27:07 AM Test Reason : pat Blood Pressure : / mmHG Vent. Rate : 073 BPM Atrial Rate : 073 BPM P-R Int : 136 ms QRS Dur : 088 ms QT Int : 392 ms P-R-T Axes : 075 086 035 degrees QTc Int : 431 ms Normal sinus rhythm. Normal ECG When compared with ECG of 27-JUN-2018 13:53, Vent. rate has decreased BY 56 BPM Confirmed by Almas FERRO, Donovan ([id number]) on 01/17/2019 8:56:37 AM
[2019-01-17 09:38] LABS: HEMATOCRIT 42.8 % (42.0-52.0); HEMOGLOBIN 14.3 g/dL (14.0-18.0); MCHC 33.4 g/dL (33-37); MCV 92.8 FL (81-99); MPV 10.7 FL (7.4-10.4); RBC 4.61 XMIL (4.7-6.1); RDW 14.4 % (11.5-14.5); WBC 8.6 X1000 (4.8-10.8)
[2019-01-17 10:04] LABS: AGAP 13; BUN 22 mg/dL (8-22); CALCIUM 9.4 mg/dL (8.8-10.2); CHLORIDE 100 mmol/L (98-107); COSMO 275; CREATININE 0.9 mg/dL (0.7-1.2); ESTIMATED GFR > 60; GLUCOSE 87 mg/dL (70-104); POTASSIUM 4.1 mmol/L (3.5-5.1); SODIUM 136 mmol/L (136-145); TCO2 23 mmol/L (25-35)
[2019-01-24] MEDS ORDERED: NEO-SYNEPHRINE ONE (10:40)
[2019-01-24] MEDS ORDERED: REGLAN ONE (11:08)
[2019-01-24] MEDS ORDERED: PEPCID ONE (11:08)
[2019-01-24] MEDS ORDERED: KEFZOL 1 GM/D5W 1 GM/50 ML IVPB ONE (11:08)
[2019-01-24] MEDS ORDERED: LR 1,000 ML ONE ×2 (11:08→15:25)
[2019-01-24] MEDS ORDERED: HEPARIN ONE (12:02)
[2019-01-24] MEDS ORDERED: NS 1,000 ML ONE ×2 (12:02→12:03)
[2019-01-24] MEDS ORDERED: KEFZOL ONE (12:03)
[2019-01-24] MEDS ORDERED: NITROGLYCERIN 50 MG/D5W 50 MG/250 ML IV.SOLN ONE (12:05)
[2019-01-24] MEDS ORDERED: QUELICIN (DOSE) ONE (12:06)
[2019-01-24] MEDS ORDERED: VERSED ONE (12:06)
[2019-01-24] MEDS ORDERED: DIPRIVAN 1% ONE (12:06)
[2019-01-24] MEDS ORDERED: XYLOCAINE-MPF 2% ONE (12:06)
[2019-01-24] MEDS ORDERED: MARCAINE 0.25% PF/EPI 1:200,000 ONE (12:26)
[2019-01-24] MEDS ORDERED: ROBINUL ONE ×2 (13:09→14:13)
[2019-01-24] MEDS ORDERED: HEPARIN (DOSE) ONE (13:11)
[2019-01-24] MEDS ORDERED: ZOFRAN ONE (13:35)
[2019-01-24] MEDS ORDERED: DECADRON ONE (13:35)
[2019-01-24] MEDS: XYLOCAINE 1% ONE ×2 (13:48→14:21)
[2019-01-24] MEDS ORDERED: NEOSTIGMINE ONE (13:56)
[2019-01-24] MEDS ORDERED: OFIRMEV 1000 MG/ISOTONIC SOLN 1,000 MG/100 ML BOTTLE ONE (15:25)
[2019-01-24] MEDS ORDERED: ZOFRAN IV PRN (17:14)
[2019-01-24] MEDS ORDERED: LR 1,000 ML IV SCH (17:14)
[2019-01-24] MEDS ORDERED: ULTRAM PO PRN (17:14)
[2019-01-24] MEDS ORDERED: NEO-SYNEPHRINE 50 MG in NS 250 ML IV SCH (17:30)
[2019-01-24] MEDS ORDERED: NITROGLYCERIN 50 MG/D5W 50 MG/250 ML IV.SOLN IV SCH ×2 (17:30)
--- NOTE | 2019-01-24 19:57 | OPERATIVE NOTE ---
PROCEDURE DATE: 01/24/2019 PROCEDURE PERFORMED: Right carotid endarterectomy with patch angioplasty. SURGEON: Julian Givens MD. STAKEHOLDER MANAGER: SRIDHAR Fried. PREOPERATIVE DIAGNOSIS: High-grade right internal carotid stenosis. POSTOPERATIVE DIAGNOSIS: High-grade right internal carotid stenosis. DESCRIPTION OF PROCEDURE: After satisfactory general endotracheal anesthesia was achieved, the right side of the neck was prepped and draped in a sterile fashion. We marked the skin in a transverse fashion in the appropriate skin line. We anesthetized the skin with 0.25% Marcaine with epinephrine. We incised the skin, and carried our incision through the platysma. We then dissected along the anterior border of the sternocleidomastoid muscle. Crossing veins were ligated and divided and even clipped with medium clips as well. We gave the patient 5000 units of heparin. We then exposed the common carotid and surrounded it with an umbilical tape. We dissected out the external carotid and surrounded it with a large vessel loop. We then dissected the internal carotid. We surrounded it with a small vessel loop. Under 2.5 loupe magnification, we then occluded flow in the external with a vessel loop. We clamped off the common, use a profunda clamp on the internal. We then incised the common with the 11 blade and extended it with the Mae scissors. We then placed a 4 to 3 mm Sundt shunt with the small end going in the internal first and then the larger end going in the common. Clamp time was less than 2 minutes. We used a [place] tool then to raise the plaque out of the common. We transected it proximally with the Mae scissors, used a [place] to further dissect it 1st out of the external and then out of the internal with a satisfactory taper point in the internal. We irrigated out the endarterectomized vessel and removed all leaflets we could identify. We then used a bovine patch 1 x 6 cm and then constructed the patch angioplasty with a 6-0 Prolene stitch. As we neared completion of the patch angioplasty, we back bled the external, removed the distal end of the shunt from the internal, back bled it, and clamped it off with a profunda clamp and then removed the shunt from the common and fore bled it too. Once again, we clamped off the common. We then finished the patch angioplasty. We then held the internal occluded, opened the external, then the common. After 5 seconds, we opened the internal. A couple of additional stitches were placed using 6-0 Prolene stitches to achieve satisfactory hemostasis along the course of the patch angioplasty. We used some Gelfoam as well. We irrigated out the wound with Kefzol-impregnated saline. We placed a Nick drain within the wound. Hemostasis appeared completely satisfactory around the patch angioplasty in the subcutaneous tissue. Once again, we injected 0.25 Marcaine with epinephrine in the subcutaneous tissue. After the drain was secured to the skin level with 2-0 silk, we then removed the Gel-Foam. We then closed the platysma with 3-0 Polysorb running. We closed the skin with a 4-0 Polysorb subcuticular stitch. Telfa and sterile OpSite was applied. Sterile gauze was placed around the exit site. He tolerated it satisfactorily and was awakened at the time of this dictation. cc: Julian Givens MD
[2019-01-24] MEDS: LOPRESSOR PO SCH (20:45)
[2019-01-24] MEDS: OFIRMEV 1000 MG/ISOTONIC SOLN 1,000 MG/100 ML BOTTLE IV SCH (21:16)
[2019-01-25] MEDS: OFIRMEV 1000 MG/ISOTONIC SOLN 1,000 MG/100 ML BOTTLE IV SCH (03:30)
[2019-01-25] MEDS ORDERED: SALINE LOCK IV FLUID XX ONE (06:56)
[2019-01-25] MEDS ORDERED: NORCO-7.5 PO PRN (06:56)
[2019-01-25] MEDS ORDERED: PROTONIX PO SCH (07:00)
[2019-01-25] MEDS: LOPRESSOR PO SCH (08:07)
[2019-01-25] MEDS ORDERED: ASPIRIN PO SCH ×2 (09:00)
--- NOTE | 2019-01-25 12:43 | GENERAL SURGERY PROGRESS NOTE ---
DATE: 01/25/2019 SUBJECTIVE: Mr. Sorto is postop day 1 after a right carotid endarterectomy. He is doing generally well. He is awake and alert and oriented. Neurologically, he is fine. His trachea is in the midline. There is no significant swelling. Really minimal Nick drainage. PLAN: The plan today will be to remove his drain, advance his diet, and transfer him to a regular room. Will make his IV saline lock. cc: Julian Givens MD
[2019-01-25 16:46] VITALS: BP 147/90
--- NOTE | 2019-01-25 22:49 | GENERAL SURGERY PROGRESS NOTE ---
DATE: 01/25/2019 He is doing well. His trachea is in the midline. Urologically he is fine. He has been taking solid food. We will plan to discharge him today. Wound care was discussed. He will continue his aspirin. He will return to see me in the office next week. cc: Julian Givens MD
== END 2019-01-25 17:13 | disposition home or self-care (01) | DRG 39 ==
LOC: SURHOLD 00:47 → ICU 17:12 → 4N 01-25 16:35
PROVIDERS: ADMIT Surgery; ATTEND Surgery